=== PATIENT | male | born 1995 | race Caucasian/White ===

== ENCOUNTER 2016-09-12 17:26 | Emergency (ER) | payer MEDICAID, OTHER ==
[~2016-09-12] VITALS: Ht 175.3 cm; Wt 100.0 kg
[2016-09-12] MEDS ORDERED: LIDOCAINE HCL BUFFERED 1% 20 ML VIAL INJ ONE (18:30)
[2016-09-12] MEDS ORDERED: PERTUSS(ACELL),DIPH,TET VAC/PF 0.5 ML VIAL IM ONE (19:00)
[2016-09-12] MEDS ORDERED: BACITRACIN 0.9 GM PACKET OINTMENT TP ONE (20:15)
[2016-09-12 20:17] VITALS: BP 137/85
== END 2016-09-12 20:20 | disposition home or self-care (01) ==
LOC: EMS 17:33
DX: S51.811A Laceration without foreign body of right forearm, initial encounter (principal); W25.XXXA Contact with sharp glass, initial encounter; Y93.89 Activity, other specified; Y92.89 Other specified places as the place of occurrence of the external cause; Y99.8 Other external cause status
CPT/HCPCS: 12002; 73090; 90471; 90715; 99284; J3490